=== PATIENT | male | born 1995 | race Caucasian/White ===

== ENCOUNTER 2020-03-26 06:50 | Emergency (ER) | payer OTHER ==
[2020-03-26] MEDS ORDERED: FENTANYL CITRATE INJ/PF 100 MCG/2 ML AMPUL IV ONE ×2 (06:54→08:05)
[2020-03-26] MEDS ORDERED: ONDANSETRON HCL INJ/PF 4 MG/2 ML SDV IV ONE (06:55)
[2020-03-26] MEDS ORDERED: NORMAL SALINE 1000 ML 1,000 ML IV ONE (06:55)
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
[2020-03-26 07:27] LABS: ALBUMIN 4.6 g/dL (3.5-5.0); ALCOHOL 18 mg/dL (NONE DETECTED); ALKALINE PHOSPHATASE 73 U/L (38-126); ANION GAP 9 (5-19); ASPARTATE AMINO TRANSFERASE 58 U/L (17-59); BILIRUBIN,DIRECT 0.1 mg/dL (0.0-0.4); BILIRUBIN,TOTAL 0.3 mg/dL (0.2-1.3); BLOOD UREA NITROGEN 7 mg/dL (7-20); CALCIUM 9.7 mg/dL (8.4-10.2); CARBON DIOXIDE 28 mmol/L (22-30); CHLORIDE 102 mmol/L (98-107); GLUCOSE 146 mg/dL (75-110); POTASSIUM 3.9 mmol/L (3.6-5.0); TOTAL PROTEIN 7.5 g/dL (6.3-8.2)
[2020-03-26 07:28] LABS: HEMATOCRIT 39.9 % (37.9-51.0); HEMOGLOBIN 13.3 g/dL (13.5-17.0); MEAN CORPUSCULAR HEMOGLOBIN 30.2 pg (27.0-33.4); MEAN CORPUSCULAR HGB CONC 33.2 g/dL (32.0-36.0); MEAN CORPUSCULAR VOLUME 91 fl (80-97); PLATELET COUNT 304 10^3/uL (150-450); RED BLOOD COUNT 4.39 10^6/uL (4.35-5.55); RED CELL DISTRIBUTION WIDTH 13.3 % (11.5-14.0)
[2020-03-26] MEDS ORDERED: NORMAL SALINE 250 ML IV PRN ×2 (07:41)
[2020-03-26 07:57] LABS: ABSOLUTE LYMPHOCYTES# (MANUAL) 2.3 10^3/uL (0.5-4.7); ABSOLUTE MONOCYTES # (MANUAL) 3.4 10^3/uL (0.1-1.4); BAND NEUTROPHILS % (MANUAL) 5 % (3-5); BASOPHILS % (MANUAL) 0 % (0-2); EOSINOPHILS % (MANUAL) 0 % (0-6); LYMPHOCYTES % (MANUAL) 6 % (13-45); MONOCYTES % (MANUAL) 9 % (3-13); SEGMENTED NEUTROPHILS % (MAN) 80 % (42-78); TOTAL CELLS COUNTED 100
[2020-03-26 07:58] LABS: PLATELET CLUMPS PRESENT; PLATELET COMMENT ADEQUATE; RBC MORPHOLOGY COMMENT NORMO-CYTIC/CHROMIC; WHITE BLOOD COUNT 37.5 10^3/uL (4.0-10.5)
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
[2020-03-26] MEDS ORDERED: TRANEXAMIC ACID INJ/PF 1,000 MG/10 ML SDV IV ONE (08:35)
--- NOTE | 2020-03-26 08:35 | EKG REPORT ---
SEVERITY:- BORDERLINE ECG - SINUS RHYTHM PROBABLE LEFT ATRIAL ABNORMALITY : Confirmed by: Sandeep Hardin MD 26-Mar-2020 08:34:49
[2020-03-26 09:19] VITALS: BP 144/80
[2020-03-27 12:05] LABS: PATH REVIEW PATHOLOGIST REVIEWED
== END 2020-03-26 08:27 ==
LOC: ER 06:50
DX: S36.039A Unspecified laceration of spleen, initial encounter (principal); S37.062A Major laceration of left kidney, initial encounter; S22.42XA Multiple fractures of ribs, left side, initial encounter for closed fracture; S00.11XA Contusion of right eyelid and periocular area, initial encounter; S00.33XA Contusion of nose, initial encounter; M79.642 Pain in left hand; R10.819 Abdominal tenderness, unspecified site; R04.0 Epistaxis; M54.2 Cervicalgia; V69.50XA Passenger in heavy transport vehicle injured in collision with unspecified motor vehicles in traffic accident, initial encounter; Y93.84 Activity, sleeping
CPT/HCPCS: 93005; 99291; 96361; 96374; 96375; 86900; 86901; 36415; 36430; 86850; 80307; 85025; 80053; 86920; 73130; 70450; 71260; 72125; 74177; 93010; P9016; J3010; J2405; J7030; J3490